=== PATIENT | female | born 1995 | race American Indian/Alaskan Native ===

== ENCOUNTER 2016-10-03 12:31 | Emergency (ER) | payer SELFPAY ==
[2016-10-03 12:35] VITALS: BMI 25.7
[2016-10-03 12:36] VITALS: O2SAT 100
[2016-10-03] MEDS ORDERED: Sodium Chloride 0.9% 1,000 ML IV ONE ×2 (12:54→13:56)
--- NOTE | 2016-10-03 12:58 | C.PDOC ---
History Of Present Illness 20 year old female presents to the ED with complaints of high blood sugar levels , headache, and weakness. Patient notes a history of Lupus, anemia, diabetes, and hypertension and is taking medication for all conditions. Patient is currently visiting from [place] and states she ran out of her insuline 2 days ago. Patient denies any constipation, fever, or any nausea. Time Seen by Provider: 10/03/16 12:54 Chief Complaint (Nursing): High Blood Sugar History Per: Patient, Family History/Exam Limitations: no limitations Onset/Duration Of Symptoms: Days Current Symptoms Are (Timing): Still Present Causative (Exacerbating) Factor(s): Missed Taking Medication Past Medical History Reviewed: Historical Data, Nursing Documentation, Vital Signs Vital Signs: Last Vital Signs Temp 98.1 F 10/03/16 15:25 Pulse 77 10/03/16 15:25 Resp 20 10/03/16 15:25 BP 158/106 H 10/03/16 15:25 Pulse Ox 100 10/03/16 16:44 - Medical History PMH: No Chronic Diseases Family History: States: Unknown Family Hx Review Of Systems Constitutional: Positive for: Weakness, Malaise. Negative for: Fever, Chills, Sweats Cardiovascular: Negative for: Palpitations Respiratory: Positive for: Cough, Shortness of Breath Gastrointestinal: Positive for: Vomiting (one episode). Negative for: Diarrhea , Constipation Genitourinary: Negative for: Dysuria Skin: Negative for: Rash Neurological: Positive for: Headache. Negative for: Weakness, Numbness, Dizziness Physical Exam - Physical Exam Appears: Non-toxic, No Acute Distress Skin: Normal Color, Warm, Dry Head: Atraumatic, Normacephalic Eye(s): bilateral: Normal Inspection, PERRL, EOMI Ear(s): Bilateral: Normal Nose: Normal Oral Mucosa: Moist Tongue: Normal Appearing Lips: Normal Appearing Throat: Normal Neck: Normal ROM, Supple Chest: Symmetrical Cardiovascular: Rhythm Regular, Murmur Respiratory: Normal Breath Sounds, No Wheezing Extremity: Normal ROM, No Deformity, No Swelling Neurological/Psych: Oriented x3, Normal Speech Gait: Steady ED Course And Treatment - Laboratory Results Result Diagrams: 10/03/16 13:24 10/03/16 13:24 Lab Interpretation: Abnormal O2 Sat by Pulse Oximetry: 100 (room air) Pulse Ox Interpretation: Normal Medical Decision Making Medical Decision Makin y.o female with history of DM complains of hyperglycemia and malaise. Patient is visiting from [place] and had no insulin for 2 days. Patient appeared in no distress during ED evaluation. Labs drawn and reviewed showing hyperglycemia, no ketones or acidosis to suggest DKA. Patient was treated with additional IV fluids and insulin. Upon reevaluation glucose is decreasing. I explained results to patient and family, they do not wish to stay in ED as they are returning to [place] tomorrow. I emphasized the importance of taking her medications and they will follow up with PMD. Disposition Counseled Patient/Family Regarding: Diagnosis, Need For Followup - Disposition Referrals: [facility] [Outside] [facility] [Outside] Disposition: HOME/ ROUTINE Disposition Time: 16:04 Condition: STABLE Additional Instructions: Please take your insulin and regular medications as usual Follow up with your primary doctor Instructions: Diabetic Hyperglycemia (ED) - POA Present On Arrival: Poor Glycemic Control - Clinical Impression Clinical Impression: Hyperglycemia - Scribe Statement The provider has reviewed the documentation as recorded by the Nevaibsushma Smith All medical record entries made by the Luci were at my direction and personally dictated by me. I have reviewed the chart and agree that the record accurately reflects my personal performance of the history, physical exam, medical decision making, and the department course for this patient. I have also personally directed, reviewed, and agree with the discharge instructions and disposition.
[2016-10-03] MEDS ORDERED: Sodium Chloride 0.9% 1,000 ML ONE ×2 (13:10→14:07)
[2016-10-03 13:24] LABS: RBC URINE 4 /hpf (0-3); URINE BILIRUBIN NEGATIVE (NEGATIVE); URINE BLOOD NEGATIVE (NEGATIVE); URINE COLOR Straw (YELLOW); URINE GLUCOSE (UA) 3+ mg/dL (Normal); URINE KETONE NEGATIVE (NEGATIVE); URINE LEUKOCYTE ESTERASE NEG Leu/uL (Negative); URINE PROTEIN 2+ mg/dL (NEGATIVE); URINE UROBILINOGEN NORMAL mg/dL (0.2-1.0); WBC URINE 2 /hpf (0-5)
[2016-10-03 13:28] LABS: BASO % 0.7 % (0.0-2.0); EOS % 0.3 % (0.0-4.0); HEMATOCRIT 28.2 % (34.0-47.0); LYMPH # 1.3 K/uL (1.0-4.3); MEAN CORPUSCULAR HEMOGLOBIN 28.4 pg (27.0-31.0); MEAN CORPUSCULAR HGB CONC 32.7 g/dL (33.0-37.0); MEAN PLATELET VOLUME 8.9 fL (7.2-11.7); MONO # 0.9 K/uL (0.0-0.8); MONO % 15.8 % (0.0-10.0); NRBC % 0.1 % (0.0-2.0); RED CELL DISTRIBUTION WIDTH 14.9 % (11.5-14.5); WHITE BLOOD COUNT 5.6 K/uL (4.8-10.8)
[2016-10-03 13:36] LABS: CHLORIDE 102 mmol/L (98-107); SODIUM 139 mmol/L (132-148)
[2016-10-03 13:39] LABS: ALB/GLOB RATIO 0.8 (1.0-2.1); ALKALINE PHOSPHATASE 120 U/L (38-126); ALT/SGPT 15 U/L (9-52); AST/SGOT 15 U/L (14-36); BILIRUBIN,TOTAL 0.2 mg/dL (0.2-1.3); BLOOD UREA NITROGEN 13 mg/dL (7-17); CARBON DIOXIDE 24 mmol/L (22-30); GFR AFRICAN-AMERICAN > 60; TOTAL PROTEIN 8.4 g/dL (6.3-8.3)
[2016-10-03 13:40] LABS: CALCIUM 8.6 mg/dl (8.6-10.4)
[2016-10-03 13:55] LABS: GLUCOSE,RANDOM 566 mg/dL (65-105)
[2016-10-03] MEDS ORDERED: (Novolin R) Insulin Human Regular 100 units/ml vial IV ONE (13:56)
[2016-10-03] MEDS ORDERED: (Novolin R) Insulin Human Regular 100 units/ml vial ONE (14:07)
[2016-10-03 15:28] VITALS: BP 158/106; PULSE 77; RESP 20; TEMP 98.1
--- NOTE | 2016-10-05 12:51 | CARD ---
APPROVED REPORT EKG Measurement Heart [id number] <Conclusion> Normal sinus rhythm with sinus arrhythmia Normal ECG
== END 2016-10-03 16:25 | disposition home or self-care (01) ==
LOC: C.ER 12:31 → MERGE 12:31 → C.ER 16:25
DX: E11.65 Type 2 diabetes mellitus with hyperglycemia (principal); Z79.4 Long term (current) use of insulin; I10 Essential (primary) hypertension
CPT/HCPCS: 80053; 81001; 82009; 82948; 84703; 85025; 87086; 93005; 99285; G0480; J7040